=== PATIENT | male | born 1940 | race Caucasian/White ===

== ENCOUNTER 2019-02-08 15:19 | Emergency (ER) | payer OTHER ==
[~2019-02-08] VITALS: Ht 167.6 cm; Wt 89.4 kg
[2019-02-08] MEDS ORDERED: HYDCHL25 PO (15:41)
[2019-02-08] MEDS ORDERED: Norco 5-325 Ta1 EACH PO (16:22)
== END 2019-02-08 16:33 | disposition home or self-care (01) ==
LOC: ER 15:19
DX: S43.101A Unspecified dislocation of right acromioclavicular joint, initial encounter (principal); S40.812A Abrasion of left upper arm, initial encounter; S00.211A Abrasion of right eyelid and periocular area, initial encounter; V89.2XXA Person injured in unspecified motor-vehicle accident, traffic, initial encounter
CPT/HCPCS: 29105; 73030; 99283-25

== ENCOUNTER 2023-03-21 12:48 | Inpatient (IN) | payer OTHER ==
[~2023-03-21] VITALS: Ht 172.7 cm; Wt 80.0 kg
[~2023-03-21 12:48] MED LIST: HYDCHL25 PO; Norco 5-325 Ta1 EACH PO
[2023-03-21 13:37] LABS: Source, Urine Foley catheter
[2023-03-21 13:45] LABS: Hematocrit 31.3 % (37.0-53.0); Hemoglobin 10.9 g/dL (13.5-17.5); Mean Corpuscular HGB 30.2 pg (26.0-34.0); Mean Corpuscular HGB Conc 34.8 g/dL (31.5-36.5); Mean Corpuscular Volume 87 fL (80-100); RDW Coefficient Variation 13.8 % (11.7-14.2); RDW Standard Deviation 43.8 fL (35.1-46.3); Red Blood Cell Count 3.61 M/mm3 (4.30-5.90); White Blood Cell Count 11.47 K/mm3 (4.00-11.30)
[2023-03-21 13:47] LABS: Albumin, Blood 3.1 g/dL (3.4-5.0); Albumin/Globulin Ratio 0.7 (0.8-1.8); Bilirubin, Total 1.2 mg/dL (0.1-1.0); Bun/Creatinine Ratio 14.9 (12.0-20.0); Calcium, Blood 9.2 mg/dL (8.5-10.1); Creatinine, Blood 3.63 mg/dL (0.60-1.20); Globulin, Blood 4.2 g/dL (2.2-4.0); Total Protein, Blood 7.3 g/dL (6.4-8.2)
[2023-03-21 13:55] LABS: Appearance, Urine Hazy (Clear); Bilirubin, Urine Neg (Neg); Blood, Urine 5+ (Neg); Color, Urine Yellow (P-Yellow); Glucose Qualitative, Urine Neg (Neg); Ketones, Urine Neg (Neg); Leukocyte Esterase, Urine 2+ (Neg); Nitrite, Urine Neg (Neg); Protein, Urine 3+ (Neg); Urobilinogen, Urine NORM (Normal)
[2023-03-21 14:01] LABS: Bacteria Few /hpf; Red Blood Cells, Urine TNTC /hpf (0-2); Squamous Epithelial Cells Not Seen /hpf (Few)
[2023-03-21 15:04] LABS: BAND PERCENT MAN 4 % (0-8); BASOPHILS PERCENT MAN 0 % (0-2); EOSINOPHILS PERCENT MAN 0 % (0-6); LYMPHOCYTES ABSOLUTE MAN 1.03 K/mm3 (0.84-5.20); LYMPHOCYTES PERCENT MAN 9 % (21-46); MONOCYTES ABSOLUTE MAN 3.67 K/mm3 (0.16-1.47); MONOCYTES PERCENT MAN 32 % (4-13); MYELOCYTE ABSOLUTE MAN 0.11 K/mm3 (0.00-0.00); MYELOCYTE PERCENT MAN 1 % (0-0); NEUTROPHILS ABSOLUTE MAN 6.65 K/mm3 (1.96-9.15); SEG NEUTROPHILS PERCENT MAN 54 % (41-73); TOTAL CELLS COUNTED 100
[2023-03-21] MEDS ORDERED: Aspirin 81 MG Chew PO ONE (15:50)
[2023-03-21] MEDS ORDERED: TAMS.4ER PO ×2 (16:17→20:23)
[2023-03-21] MEDS ORDERED: Magnesium Hydroxide Conc 10 ML UDC PO PRN (17:45)
[2023-03-21] MEDS ORDERED: NS 1,000 ML IV SCH (17:45)
[2023-03-21] MEDS ORDERED: FLU VACC QS2023-24(6MOS UP)/PF 60 MCG/0.5 ML SYRINGE IM SCH (17:45)
[2023-03-21] MEDS ORDERED: CefTRIAXone Sodium 1,000 MG in NS 50 ML IV SCH (18:00)
[2023-03-21 18:55] LABS: U Amphetamine Screen Not Detected; U Barbituate Screen Not Detected; U Benzodiazapine Screen Not Detected; U Buprenorphine Screen Not Detected; U Cannabinoids Screen Not Detected; U Cocaine Screen Not Detected; U Methadone Screen Not Detected; U Methamphetamine Screen Not Detected; U Opiates Screen Not Detected; U Oxycodone Screen Not Detected; U Phencyclidine Screen Not Detected
[2023-03-21 19:49] VITALS: BP 176/83
[2023-03-21] MEDS ORDERED: Saw Palmetto160 MG PO (20:24)
[2023-03-21] MEDS ORDERED: Lactobacil 2-S.Thermo-Bifido 1 1 Cap PO SCH (21:00)
[2023-03-21] MEDS ORDERED: Lactated Ringer's 1,000 ML IV SCH (22:00)
--- NOTE | 2023-03-21 22:30 | NUR ---
PATIENT CAME IN FROM ED PER STRETCHER. WITH PIV LINE ON RIGHT UPPER ARM. TRANSFERRED TO BED COMFORTABLY. SKIN ASSSESSMENT DONE. VITAL SIGNS TAKEN AND RECORDED. STARTED IV FLUIDS ON.
[2023-03-22 04:17] VITALS: BP 158/96
--- NOTE | 2023-03-22 04:35 | NUR ---
PATIENT IS ALERT AND ORIENTED X3, ON ROOM AIR. WITH PIV LINE ON RIGHT UPPER ARM PATENT AND INTACT; 1 BAG OF LR 1L INFUSED WITHOUT ANY ISSUES. HE TAKES WHOLE PILLS WITH WATER WITHOUT ANY ISSUES. NO COMPLAINT MADE. SLEPT FAIRLY. WITH PAUL CATHETER DRAINING LIGHT RED URINE OUTPUT, NO BALDDER SPASM OCCURRED. HAD A GOOD APPETITE LAST. NEEDS ATTENDED. CALL LIGHT WITHIN PATIENT'S REACH. WILL CONTINUE TO MONITOR.
[2023-03-22 05:31] LABS: BASOPHILS ABSOLUTE AUTO 0.01 K/mm3 (0.00-0.23); BASOPHILS PERCENT AUTO 0 % (0-2); EOSINOPHILS ABSOLUTE AUTO 0.01 K/mm3 (0.00-0.68); EOSINOPHILS PERCENT AUTO 0 % (0-6); Hematocrit 28.5 % (37.0-53.0); Hemoglobin 9.8 g/dL (13.5-17.5); IMMATURE GRAN ABSOLUTE AUTO 0.04 K/mm3 (0.00-0.10); IMMATURE GRAN PERCENT AUTO 1 % (0-1); LYMPHOCYTES ABSOLUTE AUTO 1.76 K/mm3 (0.84-5.20); LYMPHOCYTES PERCENT AUTO 21 % (21-46); MONOCYTES PERCENT AUTO 27 % (4-13); Mean Corpuscular HGB 30.6 pg (26.0-34.0); Mean Corpuscular HGB Conc 34.4 g/dL (31.5-36.5); Mean Corpuscular Volume 89 fL (80-100); Mean Platelet Volume 9.8 fL (9.1-12.4); NEUTROPHILS ABSOLUTE AUTO 4.45 K/mm3 (1.96-9.15); NEUTROPHILS PERCENT AUTO 52 % (41-73); Platelet Count 228 K/mm3 (150-400); RDW Coefficient Variation 13.6 % (11.7-14.2); RDW Standard Deviation 44.2 fL (35.1-46.3); White Blood Cell Count 8.57 K/mm3 (4.00-11.30)
[2023-03-22 05:53] LABS: Albumin, Blood 2.7 g/dL (3.4-5.0); Albumin/Globulin Ratio 0.7 (0.8-1.8); Bilirubin, Total 1.1 mg/dL (0.1-1.0); Bun/Creatinine Ratio 15.5 (12.0-20.0); Calcium, Blood 8.6 mg/dL (8.5-10.1); Creatinine, Blood 3.09 mg/dL (0.60-1.20); Globulin, Blood 3.9 g/dL (2.2-4.0); Potassium, Blood 3.4 mmol/L (3.5-5.5); Total Protein, Blood 6.6 g/dL (6.4-8.2)
[2023-03-22] MEDS ORDERED: Potassium Chloride 20 MEQ TabCR PO ONE ×2 (07:15→07:35)
[2023-03-22 07:35] VITALS: BP 160/93
[2023-03-22] MEDS ORDERED: NS 1,000 ML IV SCH ×2 (08:00→11:00)
[2023-03-22] MEDS ORDERED: Tamsulosin HCl 0.4 MG Cap PO SCH (09:00)
[2023-03-22] MEDS ORDERED: Heparin Sodium,Porcine 5,000 UNIT/0.5 ML SDV SC SCH (09:00)
[2023-03-22 14:54] VITALS: BP 140/81
--- NOTE | 2023-03-22 17:04 | NUR ---
SHIFT SUMMARY PT A&OX3, VSS, AMB W/ SBA, TOLERATING PO, VOIDING VIA PAUL W/ HEMATURIA, NS INFUSING @ 100 MLS/HR, AND DENIED PAIN. CALL LIGHT WITHIN REACH AND PT ABLE TO MAKE NEEDS KNOWN.
[2023-03-22 19:11] VITALS: BP 135/63
[2023-03-23] VITALS (8 sets, daily range): BP systolic 161–174; BP diastolic 73–91
[2023-03-23 04:57] LABS: BASOPHILS ABSOLUTE AUTO 0.02 K/mm3 (0.00-0.23); BASOPHILS PERCENT AUTO 0 % (0-2); EOSINOPHILS PERCENT AUTO 1 % (0-6); Hematocrit 29.1 % (37.0-53.0); Hemoglobin 9.9 g/dL (13.5-17.5); IMMATURE GRAN ABSOLUTE AUTO 0.05 K/mm3 (0.00-0.10); IMMATURE GRAN PERCENT AUTO 1 % (0-1); LYMPHOCYTES ABSOLUTE AUTO 2.02 K/mm3 (0.84-5.20); LYMPHOCYTES PERCENT AUTO 25 % (21-46); MONOCYTES ABSOLUTE AUTO 1.89 K/mm3 (0.16-1.47); MONOCYTES PERCENT AUTO 24 % (4-13); Mean Corpuscular HGB 30.5 pg (26.0-34.0); Mean Corpuscular Volume 90 fL (80-100); NEUTROPHILS ABSOLUTE AUTO 3.89 K/mm3 (1.96-9.15); NEUTROPHILS PERCENT AUTO 49 % (41-73); Platelet Count 234 K/mm3 (150-400); RDW Coefficient Variation 13.5 % (11.7-14.2); RDW Standard Deviation 44.5 fL (35.1-46.3); Red Blood Cell Count 3.25 M/mm3 (4.30-5.90); White Blood Cell Count 7.97 K/mm3 (4.00-11.30)
[2023-03-23 05:37] LABS: Albumin, Blood 2.5 g/dL (3.4-5.0); Albumin/Globulin Ratio 0.6 (0.8-1.8); Bilirubin, Total 0.8 mg/dL (0.1-1.0); Calcium, Blood 8.4 mg/dL (8.5-10.1); Creatinine, Blood 2.63 mg/dL (0.60-1.20); Globulin, Blood 4.1 g/dL (2.2-4.0); Potassium, Blood 3.6 mmol/L (3.5-5.5); Total Protein, Blood 6.6 g/dL (6.4-8.2)
--- NOTE | 2023-03-23 06:07 | NUR ---
PATIENT IS ALERT AND ORIENTED AND ON ROOM AIR. WITH PIV LINE ON RIGHT UPPER ARM, WITH ONGOING IV FLUIDS, INFUSING WELL. NO COMPLAINTS MADE. WITH PAUL CATHETER, DRAINING WELL WITH ABEL COLOR URINE. PATIENT STATED THAT HE WANTS TO GO HOME TODAY HE HAS THINGS TO TAKE CARE OF. NEEDS ATTENDED. CALL LIGHT WITHIN PATIENT'S REACH. WILL CONTINUE TO MONITOR.
[2023-03-23] MEDS ORDERED: Metoprolol Succinate 25 MG TABCR PO SCH (09:00)
[2023-03-23] MEDS ORDERED: Losartan Potassium 25 MG Tab PO SCH (09:00)
[2023-03-23] MEDS ORDERED: NS 1,000 ML IV SCH (12:00)
[2023-03-23] MEDS ORDERED: AmLODIPine Besylate 5 MG Tab PO SCH (12:00)
[2023-03-23] MEDS ORDERED: AmLODIPine Besylate 5 MG Tab PO ONE (15:00)
--- NOTE | 2023-03-23 18:06 | NUR ---
PATIENT IS ALERT AND OREINTED TO SELF AND PLACE AT TIMES. HE IS COOPERATIVE WITH CARE. IMPULSIVE AT TIMES, BED ALARM IS ON. PATIENT HAS BEEN HYPERTENSIVE TODAY, MEDICATIONS PER EMAR AND DR. CHAKRABORTY AND DR. LANDERS NOTIFIED. COGNITIV SCREEN WAS COMPLETED TODAY. WILL CONTINUE TO MONITOR
[2023-03-24 04:43] LABS: BASOPHILS ABSOLUTE AUTO 0.02 K/mm3 (0.00-0.23); BASOPHILS PERCENT AUTO 0 % (0-2); EOSINOPHILS ABSOLUTE AUTO 0.11 K/mm3 (0.00-0.68); EOSINOPHILS PERCENT AUTO 1 % (0-6); Hematocrit 31.2 % (37.0-53.0); Hemoglobin 10.7 g/dL (13.5-17.5); IMMATURE GRAN ABSOLUTE AUTO 0.07 K/mm3 (0.00-0.10); IMMATURE GRAN PERCENT AUTO 1 % (0-1); LYMPHOCYTES ABSOLUTE AUTO 1.88 K/mm3 (0.84-5.20); LYMPHOCYTES PERCENT AUTO 24 % (21-46); MONOCYTES ABSOLUTE AUTO 1.73 K/mm3 (0.16-1.47); MONOCYTES PERCENT AUTO 22 % (4-13); Mean Corpuscular HGB 30.5 pg (26.0-34.0); Mean Corpuscular HGB Conc 34.3 g/dL (31.5-36.5); Mean Corpuscular Volume 89 fL (80-100); Mean Platelet Volume 9.9 fL (9.1-12.4); NEUTROPHILS ABSOLUTE AUTO 3.97 K/mm3 (1.96-9.15); NEUTROPHILS PERCENT AUTO 51 % (41-73); Platelet Count 296 K/mm3 (150-400); RDW Coefficient Variation 13.2 % (11.7-14.2); RDW Standard Deviation 42.7 fL (35.1-46.3); Red Blood Cell Count 3.51 M/mm3 (4.30-5.90); White Blood Cell Count 7.78 K/mm3 (4.00-11.30)
[2023-03-24 05:13] VITALS: BP 177/85
[2023-03-24 05:14] LABS: Albumin, Blood 2.7 g/dL (3.4-5.0); Albumin/Globulin Ratio 0.6 (0.8-1.8); Bilirubin, Total 0.6 mg/dL (0.1-1.0); Bun/Creatinine Ratio 16.6 (12.0-20.0); Calcium, Blood 8.5 mg/dL (8.5-10.1); Creatinine, Blood 2.23 mg/dL (0.60-1.20); Globulin, Blood 4.3 g/dL (2.2-4.0); Potassium, Blood 3.6 mmol/L (3.5-5.5); Thyroid Stimulating Hormone 1.18 uIU/mL (0.360-4.800)
--- NOTE | 2023-03-24 05:25 | NUR ---
SHIFT SUMMERY, PT RESTED IN BED MOST OF THE NIGHT BUT AWOKE AND WAS A LITTLE CONFUSED, PT REDIRECTED AND PT BACK IN BED TO SLEEP SOME MORE. CALL LIGHT IN REACH. BED ALARM ON.
[2023-03-24 07:38] VITALS: BP 175/83
[2023-03-24] MEDS ORDERED: Labetalol HCL 5 MG/ML 4ML Injection (Single Dose) IV PRN (07:50)
[2023-03-24 09:59] VITALS: BP 135/69
[2023-03-24] MEDS ORDERED: Bisacodyl 10 MG Supp PR PRN (14:10)
[2023-03-24] MEDS ORDERED: Polyethylene Glycol 3350 17 gm PO PRN (14:10)
[2023-03-24 15:19] VITALS: BP 153/77
--- NOTE | 2023-03-24 17:21 | NUR ---
SHIFT SUMMARY PT AWAKE FOR SHIFT REPORT THIS AM. UP TO CHAIR AT BS FOR ALL MEALS; 1P SBA TO CHAIR AND BACK TO BED. PAUL CATH, PATENT AND DRAINING, SMALL AMT OF BLOOD TINGE AT TIMES. PER REPORT, PAUL PLACED BY [facility] FOR RETENSION. PT WITH HX OF BPH, UTI'S, SANDRA, AND OBSTRUCTIVE UROPATHY. HX OF DEMENTIA; PT IS FORGETFUL AT TIMES. PLEASANT AND CO-OP. DR HAMMOND IN TO SEE PT A COUPLE OF TIMES, DISCUSSED PLAN OF CARE. POSSIBLE D/C TO HOME ON SUNDAY. PT LIVES ALONE WITH NO IMMEDIATE FAMILY. PT REPORTS THAT HE NEEDS TO GET HOME, HE IS BUILDING A HOUSE. REPORTED NO BM FOR 3 DAYS; BOWEL CARE ORDERED AND STARTED PER EMAR. LABATOLOL GIVEN THIS AM WITH GOOD EFFECT; SEE CHART. PT DENIES FURTHER NEEDS AT THIS TIME. CALL LT IN REACH. BED AND CHAIR ALARM USED FOR SAFETY.
[2023-03-24] MEDS ORDERED: Metoprolol Tartrate 25 MG Tab PO SCH (18:00)
[2023-03-24 19:50] VITALS: BP 151/69
[2023-03-24] MEDS ORDERED: Docusate Sodium 100 MG Cap PO SCH (21:00)
[2023-03-24] MEDS ORDERED: Sennosides 8.6 MG Tab PO SCH (21:00)
[2023-03-25 04:56] LABS: BASOPHILS ABSOLUTE AUTO 0.01 K/mm3 (0.00-0.23); BASOPHILS PERCENT AUTO 0 % (0-2); EOSINOPHILS ABSOLUTE AUTO 0.12 K/mm3 (0.00-0.68); EOSINOPHILS PERCENT AUTO 2 % (0-6); Hematocrit 29.9 % (37.0-53.0); IMMATURE GRAN ABSOLUTE AUTO 0.05 K/mm3 (0.00-0.10); IMMATURE GRAN PERCENT AUTO 1 % (0-1); LYMPHOCYTES ABSOLUTE AUTO 1.66 K/mm3 (0.84-5.20); LYMPHOCYTES PERCENT AUTO 25 % (21-46); MONOCYTES ABSOLUTE AUTO 1.46 K/mm3 (0.16-1.47); MONOCYTES PERCENT AUTO 22 % (4-13); Mean Corpuscular HGB 29.7 pg (26.0-34.0); Mean Corpuscular HGB Conc 33.4 g/dL (31.5-36.5); Mean Corpuscular Volume 89 fL (80-100); Mean Platelet Volume 9.8 fL (9.1-12.4); NEUTROPHILS ABSOLUTE AUTO 3.33 K/mm3 (1.96-9.15); NEUTROPHILS PERCENT AUTO 50 % (41-73); Platelet Count 299 K/mm3 (150-400); RDW Coefficient Variation 12.9 % (11.7-14.2); RDW Standard Deviation 41.6 fL (35.1-46.3); Red Blood Cell Count 3.37 M/mm3 (4.30-5.90); White Blood Cell Count 6.63 K/mm3 (4.00-11.30)
[2023-03-25 05:10] VITALS: BP 135/72
[2023-03-25 05:22] LABS: Albumin, Blood 2.4 g/dL (3.4-5.0); Albumin/Globulin Ratio 0.6 (0.8-1.8); Bilirubin, Total 0.7 mg/dL (0.1-1.0); Bun/Creatinine Ratio 17.4 (12.0-20.0); Calcium, Blood 8.5 mg/dL (8.5-10.1); Creatinine, Blood 1.84 mg/dL (0.60-1.20); Globulin, Blood 4.3 g/dL (2.2-4.0); Potassium, Blood 3.7 mmol/L (3.5-5.5); Total Protein, Blood 6.7 g/dL (6.4-8.2)
[2023-03-25 07:38] VITALS: BP 163/76
[2023-03-25 16:08] VITALS: BP 160/82
[2023-03-25] MEDS ORDERED: Metoprolol Tartrate 50 MG Tab PO SCH (17:00)
--- NOTE | 2023-03-25 18:30 | NUR ---
SHIFT SUMMARY: PT ORIENTED TO SELF, DATE/TIME, FAMILY/FRIENDS AND OCCASIONALLY PLACE. PT HAS BEEN SLOWLY SHOWING MORE SIGNS OF FORGETFULNESS/ENCEPHALOPATHY THROUGHOUT DAY. PAUL IN PLACE DRAINING YELLOW URINE TO GRAVITY. CT ABD/PELVIS SCHEDULED FOR TOMORROW MORNING FOR ABDOMINAL MASS. ELEVATED BLOOD PRESSURE THIS SHIFT. MEDICATED PER EMAR. NO C/O PAIN. CALL LIGHT IN REACH. BED IN LOWEST POSITION. WILL REPORT TO ONCOMING RN.
[2023-03-25 19:28] VITALS: BP 161/83
[2023-03-25] MEDS ORDERED: NS 1,000 ML IV SCH (20:00)
[2023-03-25] MEDS ORDERED: Heparin Sodium 5000 Units/ML 1ML MDV IV ONE (20:00)
--- NOTE | 2023-03-26 04:17 | NUR ---
SHIFT SUMMARY PT A/OX2. AND REQUIRES FREQUENT REORIENTATION. PULLS OFF GOWN MULTIPLE TIMES THROUGHOUT NIGHT AND MESSES WITH PAUL CATHETER BUT DOES NOT ATTEMPT TO PULL OUT. BED ALARM ON. DOES NOT CALL APPROPRIATELY. PT STILL HAS NOT HAD A BM. BOWEL REGIMEN HAS BEEN STARTED. NO REPORTS OF PAIN.
[2023-03-26 04:21] VITALS: BP 170/76
[2023-03-26 05:42] LABS: BASOPHILS ABSOLUTE AUTO 0.03 K/mm3 (0.00-0.23); BASOPHILS PERCENT AUTO 0 % (0-2); EOSINOPHILS ABSOLUTE AUTO 0.06 K/mm3 (0.00-0.68); EOSINOPHILS PERCENT AUTO 1 % (0-6); Hematocrit 30.6 % (37.0-53.0); Hemoglobin 10.3 g/dL (13.5-17.5); IMMATURE GRAN ABSOLUTE AUTO 0.06 K/mm3 (0.00-0.10); IMMATURE GRAN PERCENT AUTO 1 % (0-1); LYMPHOCYTES ABSOLUTE AUTO 1.55 K/mm3 (0.84-5.20); LYMPHOCYTES PERCENT AUTO 20 % (21-46); MONOCYTES ABSOLUTE AUTO 2.13 K/mm3 (0.16-1.47); MONOCYTES PERCENT AUTO 27 % (4-13); Mean Corpuscular HGB Conc 33.7 g/dL (31.5-36.5); Mean Corpuscular Volume 89 fL (80-100); Mean Platelet Volume 9.6 fL (9.1-12.4); NEUTROPHILS ABSOLUTE AUTO 4.08 K/mm3 (1.96-9.15); NEUTROPHILS PERCENT AUTO 52 % (41-73); Platelet Count 312 K/mm3 (150-400); RDW Coefficient Variation 12.9 % (11.7-14.2); RDW Standard Deviation 42.4 fL (35.1-46.3); Red Blood Cell Count 3.43 M/mm3 (4.30-5.90); White Blood Cell Count 7.91 K/mm3 (4.00-11.30)
[2023-03-26 06:08] LABS: Albumin, Blood 2.5 g/dL (3.4-5.0); Albumin/Globulin Ratio 0.6 (0.8-1.8); Bilirubin, Total 0.7 mg/dL (0.1-1.0); Bun/Creatinine Ratio 16.4 (12.0-20.0); Calcium, Blood 8.6 mg/dL (8.5-10.1); Creatinine, Blood 1.83 mg/dL (0.60-1.20); Globulin, Blood 4.3 g/dL (2.2-4.0); Potassium, Blood 3.8 mmol/L (3.5-5.5); Total Protein, Blood 6.8 g/dL (6.4-8.2)
[2023-03-26 07:30] VITALS: BP 167/72
[2023-03-26] MEDS ORDERED: Tamsulosin HCl 0.4 MG Cap PO SCH (09:00)
[2023-03-26] MEDS ORDERED: Enoxaparin 40 MG/0.4 ML SYR SC SCH (09:00)
[2023-03-26] MEDS ORDERED: OLANZapine 10 MG Vial IM ONE (10:10)
--- NOTE | 2023-03-26 10:56 | NUR ---
ASSUMED CARE FROM DAMEON RN AT 1045. PATIENT IS CURRENTLY TALKING WITH PHYSICAL THERAPY.
[2023-03-26] MEDS ORDERED: Thiamine HCl 500 MG in NS 100 ML IV SCH (11:00)
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
[2023-03-26] MEDS ORDERED: QUEtiapine Fumarate 25 MG Tab PO PRN (12:20)
[2023-03-26] MEDS ORDERED: OLANZapine 10 MG Vial IM PRN (12:20)
[2023-03-26 15:36] VITALS: BP 149/88
--- NOTE | 2023-03-26 15:54 | NUR ---
ASSUMED CARE OF PATIENT UPON HIS TRANSFER FROM ROOM 341 TO ROOM 351. HE IS ALERT, ORIENTED X 1-2, HAS 1:1 PRESENT, AND IS PLEASANT AND COOPERATIVE SO FAR. TRANSFERRED VIA HIS BED. WILL ASSESS PT WILL ALLOW.
--- NOTE | 2023-03-26 18:10 | NUR ---
SHIFT SUMMARY: NO ACUTE EVENTS SINCE TRANSFER. COOPERATIVE WITH CARE THUS FAR. PAUL DRAINING ADEQUATE URINE. HAS 1:1 SITTER D/T 2 MD HOLD. NO BEHAVIORS REQUIRING PRN MEDICATION AND NO RESTRAINTS IN USE. ON ROOM AIR. DENIED PAIN. WAS AMENABLE TO TAKING MEDICATIONS THIS EVENING.
[2023-03-26 20:33] VITALS: BP 160/71
[2023-03-26] MEDS ORDERED: QUEtiapine Fumarate 50 MG TAB PO SCH (21:00)
[2023-03-26] MEDS ORDERED: Ketorolac Tromethamine 15mg Vial IV PRN (22:15)
[2023-03-27 05:52] VITALS: BP 162/66
--- NOTE | 2023-03-27 06:15 | NUR ---
SHIFT SUMMARY PT HAD EPISODE OF RESTLESS LEGS DURING SHIFT WITH HYPERSENSITIVITY IN BLE. INCREASED LEVEL OF PAIN IN TOES ON BOTH FEET. DR. DAWN ORDERED IV KETOROLAK 15MG Q6 PRN. THIS WAS SUCCESSFUL IN RELIEVING HIS DISCOMFORT, AND PT WAS ABLE TO SLEEP COMFORTABLY FOR THE REMAINDER OF THE SHIFT. *UPON AGITATION EPISODES, PT WILL BEGIN PULLING AT LINES AND PAUL AND TRY TO GET OUT OF BED* PT OTHERWISE COOPERATIVE AND PLEASANT WITH CARE.
[2023-03-27 07:02] VITALS: BP 167/79
[2023-03-27 15:43] VITALS: BP 153/66
[2023-03-27] MEDS ORDERED: AmLODIPine Besylate 5 MG Tab PO ONE (15:45)
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
--- NOTE | 2023-03-27 18:17 | NUR ---
SHIFT SUMMARY: NO ACUTE EVENTS. CODE STATUS CHANGED TO DNR, POLST COMPLETED AND AD RECEIVED FROM [facility]. A&O X 2, CAN BE FORGETFUL AND IRRITABLE AT TIMES. REFUSED BATHING, ORAL CARE, AND CATHETER CARE X 2 DAY. IV SALINE LOCK REMOVED, IVF D/C'D. PALLAITIVE CARE CONFERRED WITH PATIENT AND HIS CLOSE FRIEND JENNIFER FOR QUITE A WHILE TODAY, TRYING TO ARRANGE HOME CARE/HOSPICE CARE THROUGHT THE [place]. PT UPSET ABOUT 2 MD HOLD; THIS AUTHOR LEFT MESSAGE FOR PATIENT [employer]VOCATE TO SEE IF THEY COULD HELP IN ANY WAY. SPEECH IS NON-SENSICAL AND NON LINEAR AT TIMES, IDEAS ARE DIFFICULT TO FOLLW. PT IS HOPING TO BE DISCHARGED HOME WITH EITHER HOSPICE OR HOME HEALTH, HIS FRIEND WILL BE CHECKING ON HIM DAILY.
[2023-03-27 20:04] VITALS: BP 144/77
[2023-03-28 04:29] VITALS: BP 172/76
--- NOTE | 2023-03-28 04:44 | NUR ---
SHIFT SUMMARY PT PLEASANT AND COOPERATIVE WITH CARE PROVIDED. PT IN NEED OF SHOWER THIS AM. MEDICATED PER EMAR. MOOD SEEMS TO HAVE IMPROVED SINCE PREVIOUS SHIFT. PT SLEPT SOUNDLY THROUGH NIGHT. CALL LIGHT PLACED WITHIN REACH.
[2023-03-28 06:02] LABS: BASOPHILS ABSOLUTE AUTO 0.02 K/mm3 (0.00-0.23); BASOPHILS PERCENT AUTO 0 % (0-2); EOSINOPHILS ABSOLUTE AUTO 0.12 K/mm3 (0.00-0.68); EOSINOPHILS PERCENT AUTO 2 % (0-6); Hematocrit 29.4 % (37.0-53.0); IMMATURE GRAN PERCENT AUTO 1 % (0-1); LYMPHOCYTES ABSOLUTE AUTO 1.72 K/mm3 (0.84-5.20); LYMPHOCYTES PERCENT AUTO 24 % (21-46); MONOCYTES ABSOLUTE AUTO 1.72 K/mm3 (0.16-1.47); MONOCYTES PERCENT AUTO 24 % (4-13); Mean Corpuscular HGB 30.3 pg (26.0-34.0); Mean Corpuscular Volume 89 fL (80-100); Mean Platelet Volume 9.7 fL (9.1-12.4); NEUTROPHILS ABSOLUTE AUTO 3.47 K/mm3 (1.96-9.15); NEUTROPHILS PERCENT AUTO 48 % (41-73); Platelet Count 348 K/mm3 (150-400); RDW Coefficient Variation 13.2 % (11.7-14.2); RDW Standard Deviation 42.8 fL (35.1-46.3); White Blood Cell Count 7.15 K/mm3 (4.00-11.30)
[2023-03-28 07:10] LABS: Albumin, Blood 2.4 g/dL (3.4-5.0); Albumin/Globulin Ratio 0.6 (0.8-1.8); Bilirubin, Total 0.6 mg/dL (0.1-1.0); Bun/Creatinine Ratio 15.2 (12.0-20.0); Calcium, Blood 8.8 mg/dL (8.5-10.1); Creatinine, Blood 1.97 mg/dL (0.60-1.20); Globulin, Blood 4.3 g/dL (2.2-4.0); Potassium, Blood 3.7 mmol/L (3.5-5.5); Total Protein, Blood 6.7 g/dL (6.4-8.2)
[2023-03-28 07:37] VITALS: BP 148/61
[2023-03-28] MEDS ORDERED: AmLODIPine Besylate 5 MG Tab PO SCH (09:00)
[2023-03-28] MEDS ORDERED: Thiamine HCl 100 MG Tab PO SCH (09:00)
--- NOTE | 2023-03-28 14:14 | NUR ---
Met with pt and friend Alexander today. The patient has stated since first arriving at the hospital he wants Alexander as his medical POA, and Alexander is agreeable. They informed me they've discussed things further today, and Alexander will be staying with the patient at his home for as long as needed. I have discussed this case in depth and in coordination with [facility] hospitalist, INSURANCE TERRITORY MANAGER, eye care professional, and Angélica Negrete with the [place] Palliative Care team. At this time, our plan is to release the patient home with Alexander tomorrow. Pt will fill out a new AD at the OR with Abhishek Carrion after discharge, naming Abhishek as medical POA. The patient has also agreed to meet with [facility] upon discharge. Packet sent to Angélica Negrete,Palliative Care RN at the OR. She directed us to Abhishek Carrion and is also planning to follow up with the patient to assess his needs in the home.
[2023-03-28] MEDS ORDERED: Acetaminophen 325 MG TABLET PO PRN (16:30)
[2023-03-28 17:07] VITALS: BP 132/70
--- NOTE | 2023-03-28 18:03 | NUR ---
DAYSHIFT SUMMARY Patient alert & oriented x2-3. This morning patient verbalized feeling frusterated with being on a hold, and wanted a "second opinion". Patient declined to take morning medications. Patient OOB in recliner, worked with therapy. Ambulating well with SBA, steady gait. Strickland in place, draining to gravity. Vitals stable. Possible discharge tomorrow.
[2023-03-28 19:40] VITALS: BP 120/66
[2023-03-29 03:16] VITALS: BP 145/57
--- NOTE | 2023-03-29 05:02 | NUR ---
END OF SHIFT SUMMARY PT A&O X 3-4 WITH INCREASED CONFUSION DURING NIGHT. ATTEMPTING TO PULL ON PAUL SEVERAL TIMES, EASILY REDIRECTABLE. SITTER REMAINING AT BEDSIDE. PENDING POSSIBLE D/C HOME WITH HOSPICE TODAY.
[2023-03-29 07:33] VITALS: BP 144/64
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
--- NOTE | 2023-03-29 13:28 | NUR ---
The patient and friend Alexander waiting in the room for discharge. They had planned to follow up at the [place] today between 11 and noon, but no discharge as of yet. Reached out to Palliative Team at the [place], as they had plans to assist the patient with paperwork today after discharge. According to the care team, the plan remains for the patient to discharge today. Pt still awaiting those orders.
[2023-03-29] MEDS ORDERED: AMLO10 PO (14:24)
[2023-03-29] MEDS ORDERED: Seroquel Xr50 MG PO (14:25)
--- NOTE | 2023-03-29 15:47 | NUR ---
PT DISCHARGED WITH HOME HOSPICE. PT FRIEND OCTAVIO AT BEDSIDE. DISCHARGE INSTRUCTIONS DISCUSSED WITH PT AND FRIEND. PALLIATIVE CARE RN AT BEDSIDE DURING DISCHARGE. EDUCATION PROVIDED ON CATHETER CARE. PAUL IN PLACE AT [facility].
== END 2023-03-29 14:58 | disposition hospice, home (50) | DRG 682 ==
LOC: ER 12:48 → MEDS 12:49
PROVIDERS: Family Medicine; Student in an Organized Health Care Education/Training Program; ADMIT Hospitalist
PROC: 0T9B70Z Drainage of Bladder with Drainage Device, Via Natural or Artificial Opening (ICD-10-PCS; principal; 2023-03-22)
PROC: 3E03329 Introduction of Other Anti-infective into Peripheral Vein, Percutaneous Approach (ICD-10-PCS; 2023-03-22)
DX: N17.9 Acute kidney failure, unspecified (principal); J12.9 Viral pneumonia, unspecified; N13.8 Other obstructive and reflux uropathy; C79.51 Secondary malignant neoplasm of bone; F03.C2 Unspecified dementia, severe, with psychotic disturbance; F03.C11 Unspecified dementia, severe, with agitation; I13.0 Hypertensive heart and chronic kidney disease with heart failure and stage 1 through stage 4 chronic kidney disease, or unspecified chronic kidney disease; C76.2 Malignant neoplasm of abdomen; N18.9 Chronic kidney disease, unspecified; N13.30 Unspecified hydronephrosis; E87.6 Hypokalemia; R74.01 Elevation of levels of liver transaminase levels; F41.9 Anxiety disorder, unspecified; E78.5 Hyperlipidemia, unspecified; K80.20 Calculus of gallbladder without cholecystitis without obstruction; N40.1 Benign prostatic hyperplasia with lower urinary tract symptoms; R33.8 Other retention of urine; I50.9 Heart failure, unspecified; Z87.891 Personal history of nicotine dependence; Z79.899 Other long term (current) drug therapy; Z87.442 Personal history of urinary calculi; Z91.013 Allergy to seafood
CPT/HCPCS: 36415; 70450; 71045; 74177; 76705; 80053; 81001; 82947; 83605; 83880; 84443; 84484; 85025; 87040; 87086; 92523; 93005; 93010; 93306; 96361; 96374; 96376; 97110; 97116; 97161; 97530; 99285-25; A9270; G0378; J0696; J1644; J1650; J1885; J3411; J7030; J7120; Q9967